=== PATIENT | female | born 1960 | race Caucasian/White ===

== ENCOUNTER 2017-07-13 10:58 | Emergency (ER) | payer BC ==
[2017-07-13 12:04] VITALS: BP 105/60
--- NOTE | 2017-07-13 12:28 | UC ---
Skin Complaint HPI - HPI Summary HPI Summary: Pt c/o of pruritic rash that began 4 weeks ago. Pt states that rash began as "itchy blotches on back, upper chest, neck," and now has spread to arms and legs. Pt states that the "itching is worse at night". Pt travels weekly for work and reports that she stays in many hotels each month - History of Current Complaint Chief Complaint: [facility] Time Seen by Provider: 07/13/17 11:55 Stated Complaint: ITCHY *2 WEEKS-POSS REACTION Hx Obtained From: Patient ?: No Onset/Duration: Gradual Onset, Lasting Weeks, Still Present, Worse Since - onset Skin Exposure Onset/Duration: Weeks Ago, Worse Since: - onset Timing: Constant Onset Severity: Mild Current Severity: Moderate Pain Intensity: 0 Location: Diffuse Character: Pruritus, Redness, Raised Aggravating Factor(s): Nothing Alleviating Factor(s): Unknown Associated Signs & Symptoms: Positive: Rash - Allergy/Home Medications Allergies/Adverse Reactions: Allergies Allergy/AdvReac Type Severity Reaction Status Date / Time methotrexate AdvReac See Comment Verified 07/13/17 11:59 Home Medications: Home Medications FLUoxetine CAP* [Prozac CAP*] 20 mg PO DAILY 07/13/17 [History Confirmed ] Iron 65 mg PO DAILY 07/13/17 [History Confirmed 07/13/17] Linagliptin (NF) [Tradjenta (NF)] 5 mg PO DAILY 07/13/17 [History Confirmed ] LoraTADine TAB(NF) [Claritin 10 MG TAB(NF)] 10 mg PO DAILY 07/13/17 [History Confirmed 07/13/17] Metoprolol Succinate XL TAB* [Toprol XL TAB*] 25 mg PO DAILY 07/13/17 [History Confirmed 07/13/17] Nabumetone TAB* [Relafen TAB*] 750 mg PO DAILY 07/13/17 [History Confirmed 07/13] Vitamin E CAP* 400 unit PO DAILY 07/13/17 [History Confirmed 07/13/17] azaTHIOprine TAB(*) [Imuran TAB(*)] 50 mg PO DAILY 07/13/17 [History Confirmed 07/13/17] Review of Systems Constitutional: Negative Skin: Rash Eyes: Negative ENT: Negative Respiratory: Negative Cardiovascular: Negative Gastrointestinal: Negative Genitourinary: Negative Motor: Negative Neurovascular: Negative Musculoskeletal: Negative Neurological: Negative Psychological: Negative Is Patient Immunocompromised?: No All Other Systems Reviewed And Are Negative: Yes PMH/Surg Hx/FS Hx/Imm Hx Previously Healthy: No Cardiovascular History: Cardiac Disease - Surgical History Surgical History: Yes Surgery Procedure, Year, and Place: 2 holes in hear repaired - Family History Known Family History: Positive: Cardiac Disease - Social History Occupation: Employed Full-time Lives: With Family Alcohol Use: None Substance Use Type: None Smoking Status (MU): Never Smoked Tobacco Have You Smoked in the Last Year: No Physical Exam Triage Information Reviewed: Yes Appearance: Well-Appearing Vital Signs: Initial Vital Signs Temp 98.1 F 07/13/17 11:55 Pulse 63 07/13/17 11:55 Resp 16 07/13/17 11:55 BP 105/60 07/13/17 11:55 Pulse Ox 100 07/13/17 11:55 Vital Signs Reviewed: Yes Eye Exam: Normal ENT Exam: Normal Dental Exam: Normal Neck exam: Normal Respiratory Exam: Normal Cardiovascular Exam: Normal Abdominal Exam: Normal Musculoskeletal Exam: Normal Neurological Exam: Normal Psychological Exam: Normal Skin: Positive: rashes - erytheamtous, raised, robina tracks Course/Dx - Differential Diagnoses - Skin Complaint Differential Diagnoses: Contact Dermatitis, Scabies - Diagnoses Provider Diagnoses: scabies. dermatitis Discharge - Sign-Out/Discharge Documenting (check all that apply): Discharge - Discharge Plan Condition: Stable Disposition: HOME Prescriptions: Permethrin 5% CREAM* 1 applic TOPICAL SEE INSTRUCTIONS #1 tube predniSONE TAB* [Deltasone TAB*] 30 mg PO DAILY #9 tab Patient Education Materials: Scabies (ED), Dermatitis (ED) Referrals: Janneth Paris [Medical Doctor] - If Needed Katerin Moore PA [Primary Care Provider] - If Needed - Billing Disposition and Condition Condition: STABLE Disposition: HOME
== END 2017-07-13 12:43 | disposition home or self-care (01) ==
LOC: UCCORT 10:58
DX: B86 Scabies (principal); L30.9 Dermatitis, unspecified; Z88.8 Allergy status to other drugs, medicaments and biological substances
CPT/HCPCS: 99212; G0463